=== PATIENT | female | born 1970 | race Caucasian/White ===

== ENCOUNTER 2022-04-08 10:48 | Emergency (ER) | payer OTHER ==
[~2022-04-08] VITALS: Ht 170.2 cm; Wt 71.6 kg
[2022-04-08 11:16] VITALS: BP 101/72
[2022-04-08 11:30] VITALS: BP 98/68
[2022-04-08 12:00] VITALS: BP 106/73
[2022-04-08 12:30] VITALS: BP 108/75
[2022-04-08] MEDS ORDERED: EC-NAPROXEN500 MG PO (13:15)
== END 2022-04-08 17:00 | disposition home or self-care (01) | DRG 556 ==
LOC: ED 10:48
DX: M79.602 Pain in left arm (principal)